=== PATIENT | male | born 1980 | race Caucasian/White ===

== ENCOUNTER → 2016-07-27 | Outpatient (CLI) | payer OTHER ==
--- NOTE | 2016-07-27 15:37 | XR ---
EXAMINATION TYPE: XR shoulder complete LT DATE OF EXAM: 07/27/2016 3:14 PM COMPARISON: NONE HISTORY: Left shoulder pain The osseous structures are intact. There is no acute fracture or dislocation. The AC joint is narro wed due to mild hypertrophic change. IMPRESSION: 1. Mild AC joint arthropathy.
== END | disposition home or self-care (01) ==
LOC: RADXRMAIN 14:54
PROVIDERS: ATTEND Internal Medicine
DX: M12.812 Other specific arthropathies, not elsewhere classified, left shoulder (principal)